=== PATIENT | female | born 1955 | race Two or more races ===

== ENCOUNTER 2019-01-20 11:17 | Emergency (ER) | payer MEDICAID ==
[~2019-01-20] VITALS: Ht 160 cm; Wt 82.6 kg
[2019-01-20 12:05] LABS: Basophils # (auto) 0 uL; Basophils % (auto) 0.2 % (0.0-2.0); Eosinophils # (auto) 0 uL; Mean Corpuscular Hgb Conc. 32.7 g/dL (32.0-36.0); Monocytes # (auto) 0.3 uL; Red Cell Distribution Width 17.5 % (11.8-14.3)
[2019-01-20 12:07] LABS: Hematocrit 39.6 % (36.0-46.0); Lymphocytes # (auto) 1.1 uL; Mean Corpuscular Hemoglobin 26.5 pg (28.0-32.0); Monocytes % (auto) 3.2 % (0.0-12.0); Neutrophils # (auto) 9.5 uL; Neutrophils % (auto) 86.6 % (37.0-80.0); Nucleated Red Blood Cells % 0.1 %; Platelet Count (auto) 272 10^3/uL (140-450); Red Blood Cells 4.89 10^6/uL (4.0-5.20)
[2019-01-20 12:28] LABS: Albumin 3.9 g/dL (3.4-5.0); Anion Gap 5 (5-15); Blood Urea Nitrogen 8 mg/dL (7-18); Carbon Dioxide 27 mmol/L (21-32); Chloride 109 mmol/L (98-107); Glucose 161 mg/dL (74-106); Sodium 141 mmol/L (136-145)
[2019-01-20 12:35] LABS: Alanine Aminotransferase 12 U/L (13-56); Alkaline Phosphatase 111 U/L (45-117); Aspartate Aminotransferase 12 U/L (15-37); BUN/Creatinine Ratio 12.5; Bilirubin, Total 0.4 mg/dL (0.2-1.0); GFR African American 121 mL/min; GFR Non-African American 100 mL/min
[2019-01-20] MEDS ORDERED: ASPirin 81 mg TAB PO ONE (13:00)
[2019-01-20 14:42] VITALS: BP 130/87
== END 2019-01-20 14:56 | disposition home or self-care (01) ==
LOC: ER 11:17
DX: R07.89 Other chest pain (principal); J40 Bronchitis, not specified as acute or chronic; I10 Essential (primary) hypertension; R42 Dizziness and giddiness; R51 Headache; Z90.710 Acquired absence of both cervix and uterus
CPT/HCPCS: 36415; 80053; 84484; 85025; 93005

== ENCOUNTER 2020-03-27 23:26 | Emergency (ER) | payer MEDICAID ==
[~2020-03-27] VITALS: Ht 167.6 cm; Wt 72.6 kg
[2020-03-28] MEDS ORDERED: ACETAMINOPHEN 325 MG TAB PO ONE
[2020-03-28] MEDS ORDERED: ASPirin 81 mg TAB PO ONE
[2020-03-28 00:08] LABS: Hemoglobin 12.2 g/dL (12.2-16.2); Nucleated Red Blood Cells % 0.1 %; Red Cell Distribution Width 16.5 % (11.8-14.3); White Blood Cell 9.9 10^3/uL (4.4-10.8)
[2020-03-28 00:10] LABS: Basophils # (auto) 0.1 10 ^3/uL (0-0.2); Basophils % (auto) 0.9 % (0.0-2.0); Eosinophils # (auto) 0.1 10 ^3/uL (0-0.8); Eosinophils % (auto) 1.5 % (0.0-7.0); Hematocrit 37.3 % (36.0-46.0); Lymphocytes # (auto) 3.6 10 ^3/uL (0.4-5.4); Lymphocytes % (auto) 36.2 % (10.0-50.0); Mean Corpuscular Hemoglobin 26.7 pg (28.0-32.0); Mean Corpuscular Hgb Conc. 32.6 g/dL (32.0-36.0); Mean Corpuscular Volume 81.8 fL (80.0-100.0); Monocytes # (auto) 0.6 10 ^3/uL (0-1.3); Monocytes % (auto) 6.3 % (0.0-12.0); Neutrophils # (auto) 5.5 10 ^3/uL (1.6-8.6); Neutrophils % (auto) 55.1 % (37.0-80.0); Platelet Count (auto) 294 10^3/uL (140-450); Red Blood Cells 4.55 10^6/uL (4.0-5.20)
[2020-03-28 00:17] LABS: Alanine Aminotransferase 12 U/L (13-56); Albumin 3.4 g/dL (3.4-5.0); Anion Gap 8 (5-15); Aspartate Aminotransferase 41 U/L (15-37); BUN/Creatinine Ratio 16.7; Blood Urea Nitrogen 10 mg/dL (7-18); Calcium 8.3 mg/dL (8.5-10.1); Carbon Dioxide 22 mmol/L (21-32); Chloride 111 mmol/L (98-107); GFR African American 130 mL/min; GFR Non-African American 107 mL/min; Glucose 93 mg/dL (74-106); Sodium 141 mmol/L (136-145)
[2020-03-28 00:19] LABS: Potassium 4.4 mmol/L (3.5-5.1)
[2020-03-28 00:21] LABS: Alkaline Phosphatase 111 U/L (45-117); Bilirubin, Total 0.4 mg/dL (0.2-1.0); INR 0.95 (0.9-1.15); Partial Thromboplastin Time 26.5 sec (23.0-31.2); Total Protein 7.2 g/dL (6.4-8.2)
[2020-03-28 00:26] LABS: Urine Bacteria FEW /hpf (None Seen); Urine Blood Negative /uL (Negative); Urine WBC <1 /hpf (0 - 5)
[2020-03-28 05:19] VITALS: BP 138/93
== END 2020-03-28 05:39 | disposition home or self-care (01) ==
LOC: EDBD 23:26 → ER 23:30
DX: R07.89 Other chest pain (principal); F17.210 Nicotine dependence, cigarettes, uncomplicated; I10 Essential (primary) hypertension; Z90.710 Acquired absence of both cervix and uterus
CPT/HCPCS: 36415; 71045; 80053; 81001; 83880; 84484; 85025; 85379; 85610; 85730; 93005

== ENCOUNTER 2023-03-13 22:33 | Emergency (ER) | payer OTHER, MEDICAID ==
[~2023-03-13] VITALS: Ht 160 cm; Wt 82.9 kg
[2023-03-13] MEDS ORDERED: OXYCODONE W/ ACETAMINOPHEN 5/325MG TABLET PO ONE (23:15)
[2023-03-14] MEDS ORDERED: IBUP-1454 PO (01:26)
[2023-03-14 01:38] VITALS: BP 166/96; PULSE 68; RESP 16; TEMP 98.1; O2SAT 92
== END 2023-03-14 01:40 | disposition home or self-care (01) ==
LOC: ER 22:33
DX: S70.01XA Contusion of right hip, initial encounter (principal); S70.11XA Contusion of right thigh, initial encounter; S09.8XXA Other specified injuries of head, initial encounter; J45.909 Unspecified asthma, uncomplicated; I10 Essential (primary) hypertension; Z90.710 Acquired absence of both cervix and uterus; Z86.73 Personal history of transient ischemic attack (TIA), and cerebral infarction without residual deficits; W18.09XA Striking against other object with subsequent fall, initial encounter; Y93.89 Activity, other specified; Y92.098 Other place in other non-institutional residence as the place of occurrence of the external cause; Y99.8 Other external cause status
CPT/HCPCS: 70450; 72100

== ENCOUNTER 2023-04-06 10:29 | Inpatient (IN) | payer OTHER, MEDICAID ==
[~2023-04-06] VITALS: Ht 165.1 cm; Wt 88.0 kg
[~2023-04-06 10:29] MED LIST: IBUP-1454 PO
[2023-04-06] MEDS: cefTRIAXone 1GM/50ML D5W 50 ML IV ONE (12:00)
[2023-04-06] MEDS: methylPREDNISolone SOD SUCC 125 MG/2 ML VL IV ONE (12:00)
[2023-04-06 12:27] LABS: Basophils # (auto) 0.1 10 ^3/uL (0-0.2); Basophils % (auto) 0.8 % (0.0-2.0); Eosinophils # (auto) 0.1 10 ^3/uL (0-0.8); Monocytes # (auto) 0.5 10 ^3/uL (0-1.3); Nucleated Red Blood Cells % 0.1 %
[2023-04-06 12:29] LABS: Eosinophils % (auto) 1.4 % (0.0-7.0); Hematocrit 41.5 % (36.0-46.0); Hemoglobin 13.5 g/dL (12.2-16.2); Lymphocytes # (auto) 1.6 10 ^3/uL (0.4-5.4); Lymphocytes % (auto) 19.5 % (10.0-50.0); Mean Corpuscular Hemoglobin 26.8 pg (28.0-32.0); Mean Corpuscular Hgb Conc. 32.6 g/dL (32.0-36.0); Mean Corpuscular Volume 82.4 fL (80.0-100.0); Monocytes % (auto) 6.8 % (0.0-12.0); Neutrophils # (auto) 5.8 10 ^3/uL (1.6-8.6); Neutrophils % (auto) 71.5 % (37.0-80.0); Red Blood Cells 5.03 10^6/uL (4.0-5.20); Red Cell Distribution Width 15.5 % (11.8-14.3); White Blood Cell 8.1 10^3/uL (4.4-10.8)
[2023-04-06 12:41] LABS: Partial Thromboplastin Time 27.8 SEC (24.5-34.5); Prothrombin Time 10.5 sec (9.3-11.8)
[2023-04-06 12:45] LABS: Alkaline Phosphatase 121 U/L (46-116); Anion Gap 7 (5-15); Aspartate Aminotransferase < 8 U/L (13-40); BUN/Creatinine Ratio 9.5 (10.0-20.0); Blood Urea Nitrogen 6 mg/dL (9-23); CRP High Sensitivity 0.22 mg/dL (<1.0); Calcium 9.1 mg/dL (8.5-10.1); Carbon Dioxide 26 mmol/L (20-30); Chloride 106 mmol/L (98-107); Glucose 132 mg/dL (74-106); Potassium 3.7 mmol/L (3.5-5.1); Sodium 139 mmol/L (136-145)
[2023-04-06 12:46] LABS: Albumin 4.4 g/dL (3.2-4.8); Bilirubin, Total 0.5 mg/dL (0.2-1.0)
[2023-04-06 12:49] LABS: Alanine Aminotransferase < 9 U/L (7-40)
[2023-04-06 13:17] LABS: Erythrocyte Sedimentation Rate 5 mm/hr (0-20)
[2023-04-06] MEDS ORDERED: DOCUSATE SOD 100 MG CAP PO PRN (14:45)
[2023-04-06] MEDS ORDERED: ACETAMINOPHEN 325 MG TAB PO PRN (14:45)
[2023-04-06] MEDS ORDERED: ONDANSETRON HCL 4 MG/2 ML VIAL IV PRN (14:45)
[2023-04-06] MEDS ORDERED: MELO-335 PO (15:11)
[2023-04-06] MEDS ORDERED: PALI1TAB PO (15:11)
[2023-04-06] MEDS ORDERED: AMLO1TAB22 PO (15:11)
[2023-04-06] MEDS ORDERED: FURO40TA4 PO (15:11)
[2023-04-06] MEDS ORDERED: POTA-228 PO (15:11)
[2023-04-06] MEDS ORDERED: LEVO100T8 PO (15:11)
[2023-04-06] MEDS ORDERED: DEUT6TAB PO (15:11)
[2023-04-06] MEDS ORDERED: MEMA28CA15 PO (15:11)
[2023-04-06] MEDS ORDERED: BETA10TA2 PO (15:11)
[2023-04-06] MEDS: ASPirin-EC 81 mg tab PO ONE (15:15)
[2023-04-06] MEDS ORDERED: hydrALAZINE HCL 20 MG/ML VL IV PRN (15:15)
[2023-04-06] MEDS: PALIPERIDONE 1.5 MG PO SCH (22:00)
[2023-04-07] VITALS (7 sets, daily range): BP systolic 118–159; BP diastolic 71–95; PULSE 75–88; RESP 16–22; TEMP 98–99.1; O2SAT 92–97
[2023-04-07] MEDS: POTASSIUM CHL 10 Meq TABLET PO SCH (02:02)
[2023-04-07] MEDS: ONDANSETRON HCL 4 MG/2 ML VIAL IV ONE (02:02)
[2023-04-07] MEDS: MORPHINE SULFATE INJ 2 MG/ml SYRG IV ONE (02:02)
[2023-04-07] MEDS: LEVOTHYROXINE SODIUM 100 MCG TAB PO SCH (09:06)
[2023-04-07] MEDS: ASPirin-EC 81 mg tab PO SCH (09:07)
[2023-04-07] MEDS: FUROSEMIDE 40 MG TAB PO SCH (09:07)
[2023-04-07] MEDS: amLODIPine BESYLATE 5 MG TAB PO SCH (09:08)
[2023-04-07] MEDS: methylPREDNISolone SOD SUCC 40 MG/ML VL IV SCH (09:08)
[2023-04-07] MEDS: DEUTETRABENAZINE 6 MG PO SCH (09:13)
[2023-04-07] MEDS: Meloxicam 15 MG TAB PO SCH (09:14)
[2023-04-07] MEDS: cefTRIAXone 1GM/50ML D5W 50 ML IV SCH (09:14)
[2023-04-07] MEDS ORDERED: PALI1TAB PO (09:55)
[2023-04-07] MEDS ORDERED: CHOL500013 PO (10:05)
[2023-04-07] MEDS ORDERED: BETA10TA2 PO (10:05)
[2023-04-07] MEDS ORDERED: RAME8TAB26 PO (10:09)
[2023-04-07] MEDS ORDERED: METO25TA93 PO (10:11)
[2023-04-07] MEDS ORDERED: CETI-120 PO (10:11)
[2023-04-07] MEDS ORDERED: MELA3TAB27 PO (10:15)
[2023-04-07 11:57] LABS: Basophils # (auto) 0 10 ^3/uL (0-0.2); Basophils % (auto) 0.4 % (0.0-2.0); Eosinophils # (auto) 0 10 ^3/uL (0-0.8); Eosinophils % (auto) 0.2 % (0.0-7.0); Hematocrit 44.5 % (36.0-46.0); Hemoglobin 14.3 g/dL (12.2-16.2); Lymphocytes # (auto) 0.7 10 ^3/uL (0.4-5.4); Lymphocytes % (auto) 8.1 % (10.0-50.0); Mean Corpuscular Hemoglobin 26.6 pg (28.0-32.0); Mean Corpuscular Hgb Conc. 32.1 g/dL (32.0-36.0); Mean Corpuscular Volume 82.9 fL (80.0-100.0); Monocytes # (auto) 0.2 10 ^3/uL (0-1.3); Monocytes % (auto) 2.7 % (0.0-12.0); Neutrophils # (auto) 7.3 10 ^3/uL (1.6-8.6); Neutrophils % (auto) 88.6 % (37.0-80.0); Red Blood Cells 5.36 10^6/uL (4.0-5.20); Red Cell Distribution Width 15.9 % (11.8-14.3); White Blood Cell 8.3 10^3/uL (4.4-10.8)
[2023-04-07 12:09] LABS: Chloride 108 mmol/L (98-107); Potassium 4.3 mmol/L (3.5-5.1); Sodium 139 mmol/L (136-145)
[2023-04-07 12:10] LABS: Anion Gap 6 (5-15); Calcium 9.7 mg/dL (8.7-10.4); Carbon Dioxide 25 mmol/L (20-30)
[2023-04-07 12:15] LABS: Blood Urea Nitrogen 6 mg/dL (9-23); Glucose 108 mg/dL (74-106)
[2023-04-07 12:16] LABS: Magnesium 2.1 mg/dL (1.6-2.6)
[2023-04-07 12:50] LABS: Erythrocyte Sedimentation Rate 8 mm/hr (0-20)
[2023-04-07 13:29] LABS: COVID19 ANTIGEN SOFIA FIA NEGATIVE (NEGATIVE)
[2023-04-07 13:30] LABS: Rapid Influenza A Negative (Negative); Rapid Influenza B Negative (Negative)
[2023-04-07 13:52] LABS: Urine WBC None Seen /hpf (0 - 5)
[2023-04-07] MEDS: HYDROcodone-ACET 5/325MG TAB PO PRN (14:00)
[2023-04-07 14:01] LABS: Urine Bacteria NONE SEEN /hpf (None Seen); Urine Blood Negative /uL (Negative); Urine Clarity Clear (Clear); Urine Color Colorless (Yellow); Urine Protein, UAD Negative (Negative); Urine Specific Gravity 1.007 (1.001-1.035); Urine Urobilinogen Normal (Negative)
[2023-04-07] MEDS: LISINOPRIL 5 MG TAB PO ONE (17:45)
[2023-04-07] MEDS: ACYCLOVIR 400 MG TAB PO SCH (18:20)
[2023-04-07] MEDS: PANTOPRAZOLE 40 MG TAB PO ONE (18:22)
[2023-04-07] MEDS: METOPROLOL SUCCINATE XL 50 MG TAB PO ONE (18:23)
[2023-04-07] MEDS: amLODIPine BESYLATE 5 MG TAB PO ONE (21:18)
[2023-04-07] MEDS: MEMANTINE HCL 5 MG TAB PO SCH (21:18)
[2023-04-07 22:40] LABS: Triglycerides 136 mg/dL (< 150)
[2023-04-07 22:41] LABS: LDL Cholesterol 86 mg/dL (< 100)
[2023-04-07 22:42] LABS: Cholesterol 188 mg/dL (< 200); HDL Cholesterol 54 mg/dL (40-59)
[2023-04-08 05:00] VITALS: BP 153/87; PULSE 87; RESP 22; TEMP 98; O2SAT 95
[2023-04-08 06:49] LABS: Basophils # (auto) 0 10 ^3/uL (0-0.2); Basophils % (auto) 0.4 % (0.0-2.0); Eosinophils # (auto) 0 10 ^3/uL (0-0.8); Eosinophils % (auto) 0.4 % (0.0-7.0); Lymphocytes # (auto) 1.3 10 ^3/uL (0.4-5.4); Monocytes # (auto) 0.8 10 ^3/uL (0-1.3); Nucleated Red Blood Cells % 0.1 %; White Blood Cell 8.2 10^3/uL (4.4-10.8)
[2023-04-08 06:52] LABS: Hematocrit 40.5 % (36.0-46.0); Hemoglobin 13.2 g/dL (12.2-16.2); Lymphocytes % (auto) 16.3 % (10.0-50.0); Mean Corpuscular Hemoglobin 26.7 pg (28.0-32.0); Mean Corpuscular Hgb Conc. 32.6 g/dL (32.0-36.0); Mean Corpuscular Volume 81.7 fL (80.0-100.0); Monocytes % (auto) 9.7 % (0.0-12.0); Neutrophils % (auto) 73.2 % (37.0-80.0); Red Blood Cells 4.95 10^6/uL (4.0-5.20); Red Cell Distribution Width 15.3 % (11.8-14.3)
[2023-04-08 07:06] LABS: Albumin 4.3 g/dL (3.2-4.8); Alkaline Phosphatase 113 U/L (46-116); Anion Gap 8 (5-15); Aspartate Aminotransferase 14 U/L (13-40); BUN/Creatinine Ratio 12.1 (10.0-20.0); Bilirubin, Total 0.4 mg/dL (0.2-1.0); Blood Urea Nitrogen 7 mg/dL (9-23); Calcium 9.4 mg/dL (8.5-10.1); Carbon Dioxide 25 mmol/L (20-30); Chloride 107 mmol/L (98-107); Glucose 112 mg/dL (74-106); Potassium 3.6 mmol/L (3.5-5.1); Sodium 140 mmol/L (136-145); Total Protein 6.8 g/dL (5.7-8.2)
[2023-04-08 07:17] LABS: Alanine Aminotransferase < 9 U/L (7-40)
[2023-04-08 07:41] LABS: Magnesium 1.9 mg/dL (1.6-2.6)
[2023-04-08 08:35] VITALS: BP 137/84; PULSE 57; RESP 16; TEMP 98.6; O2SAT 98
[2023-04-08] MEDS: PANTOPRAZOLE 40 MG TAB PO SCH (09:39)
[2023-04-08] MEDS: predniSONE 20 MG TAB PO SCH (09:39)
[2023-04-08] MEDS: amLODIPine BESYLATE 5 MG TAB PO SCH (09:39)
[2023-04-08] MEDS: hydroCHLOROthiazide 25 MG TAB PO SCH (09:42)
[2023-04-08] MEDS: METOPROLOL SUCCINATE XL 50 MG TAB PO SCH (09:44)
[2023-04-08] MEDS ORDERED: LISINOPRIL 5 MG TAB PO SCH (10:00)
[2023-04-08] MEDS: LEVOTHYROXINE SODIUM 50 MCG TAB PO SCH (10:00)
[2023-04-08 12:43] VITALS: BP 106/78; PULSE 84; RESP 19; TEMP 98.8; O2SAT 97
[2023-04-08] MEDS ORDERED: IBUP-1453 PO ×2 (12:59→13:06)
[2023-04-08] MEDS ORDERED: ACYC1TAB3 PO (12:59)
[2023-04-08] MEDS ORDERED: GABA-1308 PO (12:59)
[2023-04-08] MEDS ORDERED: LEVO75TA6 PO (13:06)
[2023-04-08] MEDS ORDERED: HYDR12.59 PO (13:06)
[2023-04-08] MEDS ORDERED: AMLO1TAB23 PO (13:06)
[2023-04-08 14:54] VITALS: BP 137/89; PULSE 90; TEMP 37.1
== END 2023-04-08 15:40 | disposition home or self-care (01) | DRG 596 ==
LOC: ER 10:29 → WEST WING 14:51 → OVERFLOW 14:51 → WEST WING 04-07 02:16
PROVIDERS: ADMIT Internal Medicine Geriatric Medicine; ATTEND Emergency Medicine
DX: B02.9 Zoster without complications (principal); G89.29 Other chronic pain; I10 Essential (primary) hypertension; E03.9 Hypothyroidism, unspecified; M25.561 Pain in right knee; F17.210 Nicotine dependence, cigarettes, uncomplicated; E78.00 Pure hypercholesterolemia, unspecified; J44.9 Chronic obstructive pulmonary disease, unspecified; L98.9 Disorder of the skin and subcutaneous tissue, unspecified; Z20.822 Contact with and (suspected) exposure to COVID-19; R59.0 Localized enlarged lymph nodes; Z79.1 Long term (current) use of non-steroidal anti-inflammatories (NSAID); Z79.899 Other long term (current) drug therapy; Z86.73 Personal history of transient ischemic attack (TIA), and cerebral infarction without residual deficits; Z71.6 Tobacco abuse counseling; Z82.49 Family history of ischemic heart disease and other diseases of the circulatory system; Z83.3 Family history of diabetes mellitus; Z79.82 Long term (current) use of aspirin; Z90.710 Acquired absence of both cervix and uterus
CPT/HCPCS: 36415; 70486; 80048; 80053; 80061; 81001; 82607; 83036; 83735; 84443; 85025; 85610; 85652; 85730; 86141; 87081; 87426; 87804; 93886; G0378; J2405